=== PATIENT | female | born 2000 | race Hispanic/Latino ===

== ENCOUNTER 2020-02-07 13:23 | Inpatient (IN) | payer MEDICAID, OTHER ==
[~2020-02-07] VITALS: Ht 157.5 cm; Wt 44.0 kg
[2020-02-07] VITALS (20 sets, daily range): BP systolic 92–134; BP diastolic 46–87
[2020-02-07 14:24] LABS: BASOPHILS % (AUTO) 0.1 % (0.0-5.0); HEMATOCRIT 33.8 % (36-48); LYMPHOCYTES % (AUTO) 10.9 % (21.0-51.0); MEAN CORPUSCULAR HEMOGLOBIN 29.7 pg (27.0-33.0); MEAN CORPUSCULAR HGB CONC 34.6 g/dL (32.0-36.0); MEAN CORPUSCULAR VOLUME 85.8 fL (80-100); MONOCYTES % (AUTO) 3.8 % (3.0-13.0); NEUTROPHILS % (AUTO) 84.9 % (40.0-77.0); PLATELET COUNT (AUTO) 234 K/uL (130-400); RED BLOOD CELL COUNT(AUTO) 3.94 MIL/uL (4.00-5.50); RED CELL DISTRIBUTION WIDTH 12.2 % (11.0-15.5); WHITE BLOOD COUNT (AUTO) 14.3 K/uL (4.8-10.8)
[2020-02-07 14:32] LABS: APPEARANCE,URINE Clear (CLEAR); BILIRUBIN,URINE Negative (NEGATIVE); COLOR,URINE Yellow (YELLOW); GLUCOSE, URINE (UA) Negative (NEGATIVE); KETONES,URINE Trace mg/dL (NEGATIVE); LEUKOCYTE ESTERASE ,URINE Negative (NEGATIVE); NITRATE,URINE Negative (NEGATIVE); OCCULT BLOOD,URINE Negative (NEGATIVE); PH,URINE 5.5 (5.0-8.0); PROTEIN,URINE Negative (NEGATIVE); UROBILINOGEN,URINE 0.2 mg/dL (0.2-1.0)
[2020-02-07 14:35] LABS: HCG,QUAL RESULT NEGATIVE (NEGATIVE)
[2020-02-07 14:37] LABS: CREATININE 0.7 mg/dL (0.5-1.5); POTASSIUM 3.4 mmol/L (3.5-5.1)
[2020-02-07 14:41] LABS: ALBUMIN 4.3 g/dL (3.5-5.0); BILIRUBIN,TOTAL 0.4 mg/dL (0.2-1.0); TOTAL PROTEIN, SERUM 7.2 g/dL (6.0-8.3)
[2020-02-07] MEDS ORDERED: IOHEXOL-350 75 ML VIAL IV ONE (15:21)
[2020-02-07] MEDS ORDERED: BUPIVACAINE/PF 0.5% 30ML VIAL ONE (17:51)
[2020-02-07] MEDS ORDERED: MORPHINE SULFATE 4 MG/1ML SYG IVP PRN (18:00)
[2020-02-07] MEDS ORDERED: CLINDAMYCIN 600 MG/D5% WATER 50 ML IV ONE (18:17)
[2020-02-07] MEDS ORDERED: MEPERIDINE-PF 25 MG/ML SYG ONE ×3 (18:17→19:54)
[2020-02-07] MEDS ORDERED: MIDAZOLAM HCL 1 MG/ML 2ML VIAL ONE (18:22)
[2020-02-07] MEDS ORDERED: PROPOFOL 10 MG/ML 20ML VIAL IV ONE (18:22)
[2020-02-07] MEDS ORDERED: LIDOCAINE PF 2% 5ML ABBOJECT ONE (18:22)
[2020-02-07] MEDS ORDERED: ONDANSETRON HCL 4 MG/2 ML VIAL ONE (18:22)
[2020-02-07] MEDS ORDERED: DEXAMETHASONE SOD PHOSPHATE 10MG/ML 1ML VIAL ONE (18:22)
[2020-02-07] MEDS ORDERED: ROCURONIUM 10MG/1ML SYR 10 MG/ML ML ONE (18:23)
[2020-02-07] MEDS ORDERED: FENTANYL CITRATE PF 50 MCG/1 ML 2ML VIAL ONE (18:23)
[2020-02-07] MEDS ORDERED: GLYCOPYRROLATE 1 MG/5 ML SYRINGE ONE (19:10)
[2020-02-07] MEDS ORDERED: NEOSTIGMINE 5MG/5ML SYR IV ONE (19:10)
[2020-02-07] MEDS ORDERED: KETOROLAC TROMETHAMINE 30MG/ML IM PRN (19:30)
[2020-02-07] MEDS ORDERED: MORPHINE SULFATE 4 MG/1ML SYG IV PRN (19:30)
[2020-02-07] MEDS ORDERED: ONDANSETRON HCL 4 MG/2 ML VIAL IVP PRN (19:30)
--- NOTE | 2020-02-07 20:40 | NUR ---
POST-OP Received pt post-op,report given per Baron Godoy Rn.Pt aao x 3,deines pain or discomfort.Abdomen soft,hypoactive bowel sounds.Band aid dressing x 4 dry and intact.Post op instructions given,verbalized understanding.She called her mother on the phone.
[2020-02-08 00:25] VITALS: BP 118/63
[2020-02-08 01:25] VITALS: BP 116/65
[2020-02-08 02:25] VITALS: BP 115/67
[2020-02-08 04:00] VITALS: BP 104/55
--- NOTE | 2020-02-08 04:48 | NUR ---
PAIN Pt was medicated with Toradol once for abdominal pain.Pt able to sleep well.
[2020-02-08 05:53] LABS: BASOPHILS % (AUTO) 0.2 % (0.0-5.0); HEMATOCRIT 33.8 % (36-48); MEAN CORPUSCULAR HEMOGLOBIN 29.2 pg (27.0-33.0); MEAN CORPUSCULAR HGB CONC 33.1 g/dL (32.0-36.0); MONOCYTES % (AUTO) 4.6 % (3.0-13.0); NEUTROPHILS % (AUTO) 83.8 % (40.0-77.0); PLATELET COUNT (AUTO) 233 K/uL (130-400); RED BLOOD CELL COUNT(AUTO) 3.84 MIL/uL (4.00-5.50); RED CELL DISTRIBUTION WIDTH 12.4 % (11.0-15.5); WHITE BLOOD COUNT (AUTO) 11.7 K/uL (4.8-10.8)
[2020-02-08 06:36] LABS: CREATININE 0.7 mg/dL (0.5-1.5)
--- NOTE | 2020-02-08 08:00 | NUR ---
AM SHIFT ASSESSMENT. NO C/O AT THIS TIME, DENIES PAIN TO SURGICAL ABD.
[2020-02-08 08:19] VITALS: BP 97/61
--- NOTE | 2020-02-08 11:00 | NUR ---
[facility] CM spoke to pt's mother Blanca Pierce discussed dc plans. Pt is independent prior to admission, lives at home w/parents. Denies any equipments/services. Feels safe to go back home, mother able to assist with transportation and needs as necessary. Dc plan to home once stable. Pt is a selpay, [facility] assisting, goes to Dr Juanita Woodruff for follow up. Informed mother of $4/5 medication plans w/[facility] and [facility]. CM to cont to follow up. Addendum: 02/08/20 at 1102 by TAMMY BRANDON LVN CM Amended: Links added.
[2020-02-08 11:12] VITALS: BP 110/69
--- NOTE | 2020-02-08 11:30 | NUR ---
MARY COWAN IN TO SEE PT. WILL ENTER DC ORDERS. STATES TO DC LATE TODAY
--- NOTE | 2020-02-08 13:00 | NUR ---
HAS TOLERATED WELL. WALKING ABOUT IN ROOM AD JANINA.
--- NOTE | 2020-02-08 16:33 | NUR ---
DISCHARGE INST.USING TEACH BACK GIVEN.SALINE LOCK REMOVED.WILL CALL DR PUGA OFFICE IF NEEDS PAIN MEDICATION.ALSO HAS FOLLOW UP APPT.WITH DR. PEREZ IN 2 WEEKS.
== END 2020-02-08 17:00 | disposition home or self-care (01) | DRG 343 ==
LOC: EDH 13:23 → EDHIP 16:30 → OBSVTOIN 16:30 → 3AH 20:22
PROVIDERS: ADMIT Student in an Organized Health Care Education/Training Program; ATTEND Student in an Organized Health Care Education/Training Program
PROC: 0DTJ4ZZ Resection of Appendix, Percutaneous Endoscopic Approach (ICD-10-PCS; principal; 2020-02-07 18:47)
DX: K35.80 Unspecified acute appendicitis (principal)
CPT/HCPCS: 36415; 74177; 80048; 80053; 81003; 81025; 83690; 85025; G0378; J1100; J1885; J2001; J2175; J2250; J2405; J2704; J2710; J3010; J3490; J7030; Q9967